=== PATIENT | male | born 1975 | race Caucasian/White ===

== ENCOUNTER 2016-11-15 13:33 | Emergency (ER) | payer SELFPAY ==
[2016-11-15] MEDS ORDERED: Sodium Chloride 0.9% 10 ML Syringe FLUSH PRN ×2 (14:15→15:26)
[2016-11-15] MEDS ORDERED: HYDROmorphone 1 MG/ML Syringe IVPUSH ONE (14:15)
[2016-11-15] MEDS ORDERED: Sodium Chloride 0.9% 1,000 ML IV ONE (14:15)
--- NOTE | 2016-11-15 14:25 | EDM.PDOC ---
ED HPI GENERAL MEDICAL PROBLEM - General Chief Complaint: Abdominal Pain Stated Complaint: PAIN ON R SIDE OF ABDOMEN Time Seen by Provider: 11/15/16 14:25 Source of Information: Reports: Patient History Limitations: Reports: No Limitations - History of Present Illness INITIAL COMMENTS - FREE TEXT/NARRATIVE: 41 year old male presents for evaluation and treatment of right lower quadrant abdominal pain. Reports the abdominal pain began yesterday. Patient is currently complaining of pain in the right lower quadrant and decreased appetite. Patient describes the pain as a sharp stabbing pain worse with movement. He states that laying flat seems to improve the pain. He denies any fevers, chills, nausea, vomiting, dysuria, hematuria, diarrhea or constipation. patient reports that his last bowel movement was this morning. Denies any surgeries to his abdomen. Last intake was around 6:30 AM breakfast. Right Abdominal Pain Score (Numeric/FACES): 5 - Related Data Allergies Allergy/AdvReac Type Severity Reaction Status Date / Time azithromycin [From Zithromax] Allergy Rash Verified 11/15/16 13:48 cantalope Allergy Swollen Uncoded 11/15/16 13:49 Tongue Home Meds: Home Meds Hydrocodone/Acetaminophen [[place] 5-325] 1 tab PO Q4H PRN #15 tablet 11/15/16 [Rx ] Past Medical History - Past Health History Medical/Surgical History: Denies Medical/Surgical History Social & Family History - Tobacco Use Smoking Status *Q: Never Smoker Second Hand Smoke Exposure: No ED ROS GENERAL - Review of Systems Review Of Systems: See Below Constitutional: Reports: Decreased Appetite. Denies: Fever, Chills GI/Abdominal: Reports: Abdominal Pain. Denies: Constipation, Diarrhea, Nausea, Vomiting : Reports: No Symptoms. Denies: Dysuria, Hematuria Skin: Denies: Rash ED EXAM, GI/ABD - Physical Exam Exam: See Below Exam Limited By: No Limitations General Appearance: Alert, WD/WN, No Apparent Distress Throat/Mouth: Normal Inspection, Normal Lips, Normal Voice, No Airway Compromise Respiratory/Chest: No Respiratory Distress, Lungs Clear, Normal Breath Sounds Cardiovascular: Normal Peripheral Pulses, Regular Rate, Rhythm, No Murmur GI/Abdominal: Normal Bowel Sounds, Soft, Tenderness (RLQ abdominal pain), McBurney's Sign, Psoas Sign, Obturator Sign, Other (minor pain with heel percussion). No: Rebound (Male) Exam: No Hernia Neurological: Alert, Oriented, Normal Cognition Psychiatric: Normal Affect, Normal Mood Skin Exam: Warm, Dry, Normal Color Course - Vital Signs Last Recorded V/S: Last Vital Signs Temp 36.2 C 11/15/16 13:49 Pulse 80 11/15/16 17:14 Resp 12 11/15/16 17:14 BP 140/70 11/15/16 17:14 Pulse Ox 98 11/15/16 17:14 - Orders/Labs/Meds Orders: Active Orders 24 hr Category Date Time Status Peripheral IV Care [RC] . DIRECTED Care 11/15/16 14:16 Active Peripheral IV Insertion Adult [OM.PC] Routine Oth 11/15/16 14:15 Ordered Labs: Laboratory Tests 11/15/16 11/15/16 11/15/16 Range/Units 14:20 14:30 14:30 WBC 7.91 (4.23-9.07) K/mm3 RBC 5.58 (4.63-6.08) M/mm3 Hgb 17.1 (13.7-17.5) gm/L Hct 46.9 (40.1-51.0) % MCV 84.1 (79.0-92.2) fl MCH 30.6 (25.7-32.2) pg MCHC 36.5 H (32.2-35.5) g/dl RDW Std Deviation 40.1 (35.1-43.9) fL Plt Count 296 (163-337) K/mm3 MPV 9.2 L (9.4-12.3) fl Neut % (Auto) 52.3 (34.0-67.9) % Lymph % (Auto) 36.0 (21.8-53.1) % [place] % (Auto) 8.3 (5.3-12.2) % Eos % (Auto) 2.1 (0.8-7.0) Baso % (Auto) 1.0 (0.1-1.2) % Neut # (Auto) 4.13 (1.78-5.38) K/mm3 Lymph # (Auto) 2.85 (1.32-3.57) K/mm3 [place] # (Auto) 0.66 (0.30-0.82) K/mm3 Eos # (Auto) 0.17 (0.04-0.54) K/mm3 Baso # (Auto) 0.08 (0.01-0.08) K/mm3 Sodium 142 (136-145) mEq/L Potassium 3.9 (3.5-5.1) mEq/L Chloride 105 (98-107) mEq/L Carbon Dioxide 27 (21-32) mEq/L Anion Gap 13.9 (5-15) BUN 14 (7-18) mg/dL Creatinine 1.3 (0.7-1.3) mg/dL Est Cr Clr Drug Dosing 79.64 mL/min Estimated GFR (MDRD) > 60 (>60) mL/min BUN/Creatinine Ratio 10.8 L (14-18) Glucose 100 (74-106) mg/dL Calcium 9.3 (8.5-10.1) mg/dL Total Bilirubin 0.3 (0.2-1.0) mg/dL AST 30 (15-37) U/L ALT 78 H (16-63) U/L Alkaline Phosphatase 77 (46-116) U/L C-Reactive Protein < 0.2 (<1.0) mg/dL Total Protein 8.1 (6.4-8.2) g/dl Albumin 4.5 (3.4-5.0) g/dl Globulin 3.6 gm/dL Albumin/Globulin Ratio 1.3 (1-2) Urine Color Light yellow (Yellow) Urine Appearance Clear (Clear) Urine pH 6.0 (5.0-8.0) Ur Specific [place] 1.010 (1.005-1.030) Urine Protein Negative (Negative) Urine Glucose (UA) Negative (Negative) Urine Ketones Negative (Negative) Urine Occult Blood Negative (Negative) Urine Nitrite Negative (Negative) Urine Bilirubin Negative (Negative) Urine Urobilinogen 0.2 (0.2-1.0) Ur Leukocyte Esterase Negative (Negative) Urine RBC 0-5 (0-5) /hpf Urine WBC 0-5 (0-5) /hpf Ur Epithelial Cells Not seen (0-5) /hpf Urine Bacteria Not seen (FEW) /hpf Urine Mucus Not seen (FEW) /hpf Meds: Medications Discontinued Medications Generic Name Dose Route Start Last Admin Trade Name Freq PRN Reason Stop Dose Admin Diatrizoate Meglum/Diatrizoate Sod 90 ml 11/15/16 15:26 11/15/16 15:35 Gastrografin 37% PO 11/15/16 15:27 90 ml ONETIME ONE Administration Hydromorphone HCl 1 mg 11/15/16 14:15 11/15/16 14:31 Dilaudid IVPUSH 11/15/16 14:16 1 mg ONETIME ONE Administration Sodium Chloride 1,000 mls @ 999 mls/hr 11/15/16 14:15 11/15/16 14:31 Normal Saline IV 11/15/16 15:15 999 mls/hr ONETIME ONE Administration Iopamidol 125 ml 11/15/16 15:26 11/15/16 15:35 Isovue-300 (61%) IVPUSH 11/15/16 15:27 125 ml ONETIME ONE Administration Sodium Chloride 10 ml 11/15/16 14:15 11/15/16 14:31 Saline Flush FLUSH 10 ml ASDIRECTED PRN Administration Keep Vein Open Sodium Chloride 10 ml 11/15/16 15:26 11/15/16 15:36 Saline Flush FLUSH 10 ml ONETIME PRN Administration IV FLUSH - Radiology Interpretation Free Text/Narrative:: CT of the abdomen and pelvis with contrast impression per Dr. Yadav 1. Incidental lung findings. No additional abnormality is identified on CT study of the abdomen and pelvis. Appendix specifically appears within normal limits. - Re-Assessments/Exams Free Text/Narrative Re-Assessment/Exam: 11/15/16 16:48 Labs include the following: WBC normal at 7.91, hgb is 178.1 and plts are 296 CRP is within normal limits at <0.2 Sodium is 142, potassium is 3.9 and chloride is 105. UA is negative for blood, nitrites, ketoens, protein, leuks or glucose. I discussed the lab and CT results with the patient and his . We will discharge him at this time. Likely a muscle strain causing pain or possibly predromal symptoms to shingles. Departure - Departure Time of Disposition: 16:51 Disposition: Home, Self-Care 01 Condition: fair Clinical Impression: Abdominal pain - Discharge Information Prescriptions: Hydrocodone/Acetaminophen [[place] 5-325] 1 tab PO Q4H PRN #15 tablet PRN Reason: Pain (Severe 7-10) Instructions: Abdominal Pain, Adult, [id number] Referrals: PCP,None [Primary Care Provider] - Eulogio Valdez PA-C [Physician Machinery Engineer] - Forms: ED Department Discharge Additional Instructions: you were given medication in the eR that can affect your ability to drive and operate machinery. No driving or operating machinery within 12 hours of taking prescription narcotic pain medication. Ice or moist heat to the sore area. [id number] Aleve twice a day. may take [place] one to 2 tabs every 4-6 hours as needed for severe pain not relieved by Aleve. Do not drive or operate machinery within 12 hours of taking the [place]. [place] can be habit-forming, I recommend you take as few of these as needed to control your pain. Follow up with family medicine if your symptoms do not improve within a week. Recommend Eulogio Valdez or Jenni Dumont. call [phone] to schedule with one of them. Please return to the ER should your symptoms change or worsen. - My Orders Last 24 Hours: My Active Orders 11/15/16 14:15 Peripheral IV Insertion Adult [OM.PC] Routine 11/15/16 14:16 Peripheral IV Care [RC] . DIRECTED - Assessment/Plan Last 24 Hours: My Active Orders 11/15/16 14:15 Peripheral IV Insertion Adult [OM.PC] Routine 11/15/16 14:16 Peripheral IV Care [RC] . DIRECTED
[2016-11-15] MEDS ORDERED: Iopamidol 612 MG/ML 150 ML Bottle IVPUSH ONE (15:26)
[2016-11-15] MEDS ORDERED: Diatrizoate Meglumine/Diatrizoate Sodium 37% 120 ML Bottle PO ONE (15:26)
--- NOTE | 2016-11-15 15:54 | CT ---
CT abdomen and pelvis Technique: Multiple axial sections were obtained from above the dome of the diaphragm inferiorly through the pubic symphysis. Intravenous and oral contrast was utilized. Comparison: No previous abdominal imaging. Findings: Appendix is seen which appears normal. Visualized lung bases shows mild atelectasis. Small calcification is noted within the anterior right lung base compatible with granuloma. Liver shows no focal parenchymal abnormality. Spleen appears within normal limits. Adrenal glands show no nodule. Pancreas is within normal limits. Kidneys show no hydronephrosis or mass. Aorta shows no aneurysmal dilatation. No retroperitoneal adenopathy or mesenteric abnormalities are seen. No pelvic mass or adenopathy is seen. Delayed images shows contrast within the distal ureters as well as contrast within the bladder. Bone window settings were reviewed which appear within normal limits for the patient's age. Impression: 1. Incidental lung findings. No additional abnormality is identified on CT study of the abdomen and pelvis. Appendix specifically appears within normal limits. Diagnostic code #1
[2016-11-15 17:17] VITALS: BP 140/70
== END 2016-11-15 17:16 | disposition home or self-care (01) ==
LOC: JD.ED 13:33
DX: R10.31 Right lower quadrant pain (principal); Z88.1 Allergy status to other antibiotic agents; Z91.018 Allergy to other foods
CPT/HCPCS: 36415; 74177; 80053; 81001; 85025; 86140; 96361; 96374; 99284; J1170; J7040; J7050; Q9963; Q9967